=== PATIENT | female | born 1990 | race Two or more races ===

== ENCOUNTER → 2020-03-10 | Emergency (ER) | payer OTHER ==
[~2020-03-10] VITALS: Ht 154.9 cm; Wt 83.9 kg
[~2020-03-10] MED LIST: KETOROLAC TROMETH 60MG/2ML VIAL IM ONE
[2020-03-10 16:44] VITALS: BP 147/97
== END | disposition home or self-care (01) ==
LOC: ER 16:31
DX: S39.012A Strain of muscle, fascia and tendon of lower back, initial encounter (principal); X50.1XXA Overexertion from prolonged static or awkward postures, initial encounter; Y93.89 Activity, other specified; Y92.89 Other specified places as the place of occurrence of the external cause; Y99.8 Other external cause status
CPT/HCPCS: 72100; 96372; 99283; J1885